=== PATIENT | male | born 1940 | race Hispanic/Latino ===

== ENCOUNTER 2022-02-23 08:10 | Outpatient (CLI) | payer MEDICARE, MEDICAID | END 2022-02-23 08:11 | disposition home or self-care (01) | LOC: CSHCT 08:10 | PROVIDERS: ATTEND Psychiatry & Neurology Neurology | DX: G31.09 Other frontotemporal neurocognitive disorder (principal); G31.89 Other specified degenerative diseases of nervous system; G93.0 Cerebral cysts | CPT/HCPCS: 70450 ==